=== PATIENT | female | born 1995 | race Caucasian/White ===

== ENCOUNTER 2020-02-29 13:50 | Emergency (ER) | payer OTHER ==
[~2020-02-29] VITALS: Ht 165.1 cm; Wt 82.6 kg
[2020-02-29 15:29] LABS: ABSOLUTE LYMPHOCYTES 1.5 thou/uL (0.8-5.3); ABSOLUTE MONOCYTES 0.6 thou/uL (0.0-1.2); ABSOLUTE NEUTROPHILS 8.2 thou/uL (1.6-8.1); BASOPHILS 0.4 %; EOSINOPHILS 0.1 %; HEMATOCRIT 42.4 % (37.0-47.0); HEMOGLOBIN 14.2 gm/dL (12.0-15.0); LYMPHOCYTES 14.3 %; MCHC 33.5 g/dL (28.0-37.0); MCV 80.8 fL (80.0-100.0); MONOCYTES 6.1 %; MPV 7.7 fl. (7.2-11.1); NUCLEATED RBCS 0 /100WBC; PLATELET COUNT* 306 thou/uL (150-400); POLYS 79.1 %; RBC 5.25 mil/uL (4.20-5.00); RDW-CV 11.9 % (10.5-14.5); WBC 10.3 thou/uL (4.0-11.0)
[2020-02-29 15:44] LABS: CALCIUM 9.4 mg/dL (8.5-10.1); CREATININE 0.8 mg/dL (0.6-1.3); POTASSIUM 3.4 mmol/L (3.5-5.1)
[2020-02-29 15:46] LABS: URINE BILIRUBIN NEGATIVE (Negative); URINE BLOOD NEGATIVE (Negative); URINE CLARITY CLEAR; URINE COLOR YELLOW; URINE GLUCOSE-RANDOM NEGATIVE (Negative); URINE KETONES 1+ (Negative); URINE LEUKOCYTES-REFLEX NEGATIVE (Negative); URINE NITRITE-REFLEX NEGATIVE (Negative); URINE PROTEIN NEGATIVE (Negative); URINE SPECIFIC GRAVITY 1.025 (1.005-1.030); URINE UROBILINOGEN 0.2 E.U./dl (0.2-1.0)
[2020-02-29 15:48] LABS: ALBUMIN 4.5 g/dL (3.4-5.0); TOTAL BILIRUBIN 0.3 mg/dL (<0.1-1.0)
[2020-02-29 16:08] LABS: INFLUENZA A ANTIGEN Negative (Negative); INFLUENZA B ANTIGEN Negative (Negative)
[2020-02-29] MEDS ORDERED: APAP W/CODEINE1 TA2 PO (17:18)
[2020-02-29] MEDS ORDERED: ONDANSETRON ODT4 MG PO (17:18)
[2020-02-29] MEDS ORDERED: PEPCID20 MG PO (17:18)
[2020-02-29 17:39] VITALS: BP 116/91
== END 2020-02-29 17:39 | disposition home or self-care (01) ==
LOC: M.ERS 13:50
PROVIDERS: Physician Assistant
DX: R53.1 Weakness (principal); R05 Cough; Z20.828 Contact with and (suspected) exposure to other viral communicable diseases